=== PATIENT | male | born 1980 | race Caucasian/White ===

== ENCOUNTER 2018-02-22 15:26 | Emergency (ER) | payer OTHER ==
[2018-02-22 15:30] VITALS: BP 137/79; PULSE 76; TEMP 98.2; BMI 29.6
--- NOTE | 2018-02-22 15:34 | PDOC ---
Rapid Medical Evaluation Time Seen by Provider: 02/22/18 15:27 Medical Evaluation: 02/22/18 15:28 I have performed a brief in-person evaluation of this patient. 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 HIV test on source neg per pt. HCV pending. Pt's hep B vaccinated and tetanus UTD Pertinent physical exam findings:unremarkable I have ordered the following: The patient will proceed to the ED for further evaluation. Discharge Disposition - Diagnosis Needle exposure Qualifiers: Encounter type: initial encounter Qualified Code(s): X58.XXXA - Exposure to other specified factors, initial encounter - Referrals - Patient Instructions - Post Discharge Activity
--- NOTE | 2018-02-22 16:01 | PDOC ---
History of Present Illness - General Chief Complaint: Blood/Body Fluid Exposure [facility] Stated Complaint: EXPOSURE Time Seen by Provider: 02/22/18 15:27 - History of Present Illness Initial Comments: 37-year-old male without comorbidities presents for evaluation of puncture wound to the left fifth finger. 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 HIV test on the source patient was negative he comes in for blood work. He denies wanting antiretroviral therapy. 02/22/18 15:58 Past History - Past Medical History Allergies/Adverse Reactions: Allergies Allergy/AdvReac Type Severity Reaction Status Date / Time Penicillins Allergy Verified 02/22/18 15:30 COPD: No - Suicide/Smoking/Psychosocial Hx Smoking History: Never smoked Review of Systems - Review of Systems All Other Systems: Reviewed and Negative *Physical Exam - Vital Signs Last Vital Signs Temp Pulse Resp BP Pulse Ox 98.2 F 76 18 137/79 98 02/22/18 15:28 02/22/18 15:28 02/22/18 15:28 02/22/18 15:28 02/22/18 15:28 - Physical Exam Comments: Left fifth finger skin color and temperature are within normal limits I do not appreciate a puncture wound, there are no gross sensorimotor deficits she is neurovascular intact. 02/22/18 15:59 Medical Decision Making - Medical Decision Making 02/22/18 16:01 kaylah is utd *DC/Admit/Observation/Transfer Diagnosis at time of Disposition: Needle exposure Qualifiers: Encounter type: initial encounter Qualified Code(s): X58.XXXA - Exposure to other specified factors, initial encounter - Discharge Dispostion Disposition: HOME Condition at time of disposition: Stable Decision to Admit order: No - Referrals - Patient Instructions Printed Discharge Instructions: How to Handle Body Fluid Exposure -- Healthcare Worker
[2018-02-24 06:05] LABS: HBsAG SCREEN Negative (Negative)
== END 2018-02-22 16:22 | disposition home or self-care (01) ==
LOC: JERFT 15:26
DX: S61.237A Puncture wound without foreign body of left little finger without damage to nail, initial encounter (principal); W45.8XXA Other foreign body or object entering through skin, initial encounter; W31.89XA Contact with other specified machinery, initial encounter; Y74.3 Surgical instruments, materials and general hospital and personal-use devices (including sutures) associated with adverse incidents; Y93.F9 Activity, other caregiving; Y92.234 Operating room of hospital as the place of occurrence of the external cause; Y99.0 Civilian activity done for income or pay; Z88.0 Allergy status to penicillin
CPT/HCPCS: 36415; 86317; 86706; 86803; 87340; 87389; 99281-25

== ENCOUNTER 2020-10-31 09:45 | Emergency (ER) | payer OTHER ==
[2020-10-31 10:16] VITALS: BP 115/76; PULSE 71; TEMP 98.7; BMI 30.8
== END 2020-10-31 10:25 | disposition home or self-care (01) ==
LOC: JERFT 09:45
DX: M79.645 Pain in left finger(s) (principal)
CPT/HCPCS: 73130-TC-LT-FY; 99284-25